=== PATIENT | male | born 1960 | race African-American/Black ===

== ENCOUNTER 2017-01-17 13:52 | Inpatient (IN) | payer BC ==
[2017-01-17 14:27] VITALS: BMI 22.8
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
[2017-01-17] MEDS ORDERED: IBUPROFEN 400 MG TABLET (FP) PO PRN (15:53)
[2017-01-17] MEDS ORDERED: MENTHOL/PHENOL 1 EACH UD MM PRN (15:53)
[2017-01-17] MEDS ORDERED: MAGNESIUM HYDROX 2400MG/30ML ORAL SUSPENSION 30 ML CUP PO PRN (15:53)
[2017-01-17] MEDS ORDERED: LOPERAMIDE HCL 2 MG CAPSULE PO PRN (15:53)
[2017-01-17] MEDS ORDERED: guaiFENesin/D-METHORPHAN HB 10 ML UNIT-DOSE CUPS PO PRN (15:53)
[2017-01-17] MEDS ORDERED: MAGNESIUM CITRATE 300 ML BOTTLE PO PRN (15:53)
[2017-01-17] MEDS ORDERED: diphenhydrAMINE HCL 50 MG CAPSULE PO PRN (15:53)
[2017-01-17] MEDS ORDERED: chlordiazePOXIDE HCL 25 MG CAPSULE PO PRN (15:53)
[2017-01-17] MEDS ORDERED: ACETAMINOPHEN 325 MG TABLET (FP) PO PRN (15:53)
[2017-01-17] MEDS ORDERED: hydrOXYzine PAMOATE 50 MG CAPSULE (FP) PO PRN (15:53)
[2017-01-17] MEDS ORDERED: P-EPHED 60MG/TRIPROLIDI 2.5MG TABLET PO PRN (15:53)
[2017-01-17] MEDS ORDERED: MAG HYDROX/AL HYDROX/SIMETH 30 ML UNIT-DOSE CUP PO PRN (15:53)
[2017-01-17] MEDS: NICOTINE 14 MG/24 HOURS TOPICAL PATCH TD SCH (19:45)
[2017-01-17] MEDS: chlordiazePOXIDE HCL 25 MG CAPSULE PO SCH ×2 (19:45→22:28)
[2017-01-17] MEDS: NICOTINE POLACRILEX 2 MG GUM BC PRN (20:23)
[2017-01-17] MEDS: THIAMINE HCL 100 MG TABLET (FP) PO SCH (22:29)
[2017-01-17 23:01] LABS: URINE APPEARANCE SLCLOUDY; URINE BILIRUBIN NEGATIVE (NEGATIVE); URINE BLOOD NEGATIVE (NEGATIVE); URINE COLOR YELLOW; URINE GLUCOSE (UA) NEGATIVE (NEGATIVE); URINE KETONE NEGATIVE (NEGATIVE); URINE NITRITE NEGATIVE (NEGATIVE); URINE PROTEIN NEGATIVE (NEGATIVE); URINE UROBILINOGEN NEGATIVE mg/dL (0.2-1.0)
[2017-01-18] MEDS: chlordiazePOXIDE HCL 25 MG CAPSULE PO SCH ×4 (05:43→22:16)
[2017-01-18 09:55] LABS: MCH 26.9 pg (25.7-33.7); MCHC 32.5 g/dl (32.0-35.9); MEAN CELL VOLUME 82.7 fl (80-96); MEAN PLT VOLUME 8.1 fl (7.5-11.1); PLATELET COUNT 148 K/MM3 (134-434); RDW 13.5 % (11.9-15.9); WHITE BLOOD COUNT 3.1 K/mm3 (4.0-10.0)
[2017-01-18 09:58] LABS: ALBUMIN 3.3 g/dl (3.4-5.0); ALK PHOS 66 U/L (45-117); ANION GAP 9 (8-16); BILIRUBIN,TOTAL 0.4 mg/dL (0.2-1.0); CALCIUM 8.8 mg/dL (8.5-10.1); CO2 27 mmol/L (21-32); CREATININE 0.9 mg/dL (0.7-1.3); GLUCOSE,RANDOM 85 mg/dL (74-106); SGOT/AST 13 U/L (15-37); SGPT/ALT 24 U/L (12-78); TOT PROT 6.2 g/dl (6.4-8.2)
[2017-01-18] MEDS: NICOTINE POLACRILEX 2 MG GUM BC PRN (10:30)
--- NOTE | 2017-01-18 11:01 | EKG ---
Test Reason : Blood Pressure : / mmHG Vent. Rate : 074 BPM Atrial Rate : 074 BPM P-R Int : 122 ms QRS Dur : 086 ms QT Int : 356 ms P-R-T Axes : 058 046 041 degrees QTc Int : 395 ms NORMAL SINUS RHYTHM POOR R WAVE PROGRESSION ABNORMAL ECG NO PREVIOUS ECGS AVAILABLE BASELINE ARTIFACT Confirmed by JEFF GAUTHIER, ROSSANA ([id number]) on 01/18/2017 11:01:34 AM Referred By: Confirmed By:ROSSANA AGUILAR MD
[2017-01-18] MEDS: PRENATAL VITAMINS W/ FOLIC ACID TABLET (FP) PO SCH (11:24)
[2017-01-18] MEDS: NICOTINE 14 MG/24 HOURS TOPICAL PATCH TD SCH (11:24)
--- NOTE | 2017-01-18 12:20 | CONSULT ---
[facility] Psychiatric Consult - Data Date of interview: 01/18/17 Admission source: [facility] Identifying data: Mr Fisher is a 56 years old single Black male, father of 3 daughters, unemployed with no source of income, homeless Substance Abuse History: Reports history of alcohol, cocaine, marijuana and pcp use. Refer to addiction counselor's note for further information Medical History: Significant for Psychiatric History: Denies history of previous psychiatric treatment Physical/Sexual Abuse/Trauma History: Denies history of verbal, physical or sexual abuse as well as DV relationship Additional Comment: Reports history of multiple arrests including 3 felony convictions Mental Status Exam - Mental Status Exam Alert and Oriented to: Time, Place, Person Cognitive Function: Fair Patient Appearance: Well Groomed Mood: Irritable (very) Affect: Appropriate Patient Behavior: Cooperative (superficially but hostile) Speech Pattern: Clear Voice Loudness: Normal Thought Process: Intact, Goal Oriented Hallucinations: Denies Suicidal Ideation: Denies Homicidal Ideation: Denies Insight/Judgement: Poor Sleep: Well Appetite: Good Muscle strength/Tone: Normal Gait/Station: Normal Psychiatric Findings - Problem List ([place] 1, 2,3) (1) Substance induced mood disorder Current Visit: Yes Status: Acute (2) Alcohol dependence with uncomplicated withdrawal Current Visit: Yes Status: Acute (3) Cocaine dependence, uncomplicated Current Visit: Yes Status: Acute (4) Cannabis dependence, uncomplicated Current Visit: Yes Status: Acute (5) Phencyclidine dependence Current Visit: Yes Status: Acute (6) Nicotine dependence Current Visit: Yes Status: Acute (7) Fracture of finger of left hand Current Visit: Yes Status: Acute Qualifiers: Encounter type: initial encounter Finger: middle finger Fracture type: closed Comment: and Ring finger left hand (8) Hyperlipidemia Current Visit: Yes Status: Acute - Initial Treatment Plan Initial Treatment Plan: Continue inpatient detoxification
[2017-01-18 14:21] LABS: URINE LEUK ESTERASE Negative (NEGATIVE)
--- NOTE | 2017-01-18 15:01 | PN ---
[facility] CIWA - CIWA Score Nausea/Vomitin-No Nausea/No Vomiting Muscle Tremors: 3 Anxiety: 2 Agitation: 2 Paroxysmal Sweats: 3 Orientation: 0-Oriented Tacttile Disturbances: 0-None Auditory Disturbances: 0-None Visual Disturbances: 0-None Headache: 0-None Present CIWA-Ar Total Score: 10 S Progress Note (SOAP) Subjective: Anxiety,tremors,sweating,interrupted sleep,restless. Objective: 01/18/17 14:59 Vital Signs - 8 hr 01/18/17 01/18/17 10:00 14:52 Temperature 96.5 F L 98.2 F Pulse Rate 81 85 Respiratory 16 16 Rate Blood Pressure 102/75 125/76 Laboratory Last Values WBC 3.1 K/mm3 (4.0-10.0) L 01/18/17 07:30 RBC 5.02 M/mm3 (4.00-5.60) 01/18/17 07:30 Hgb 13.5 GM/dL (11.7-16.9) 01/18/17 07:30 Hct 41.5 % (35.4-49) 01/18/17 07:30 MCV 82.7 fl (80-96) 01/18/17 07:30 MCH 26.9 pg (25.7-33.7) 01/18/17 07:30 MCHC 32.5 g/dl (32.0-35.9) 01/18/17 07:30 RDW 13.5 % (11.9-15.9) 01/18/17 07:30 Plt Count 148 K/MM3 (134-434) 01/18/17 07:30 MPV 8.1 fl (7.5-11.1) 01/18/17 07:30 Sodium 142 mmol/L (136-145) 01/18/17 07:30 Potassium 4.1 mmol/L (3.5-5.1) 01/18/17 07:30 Chloride 106 mmol/L (98-107) 01/18/17 07:30 Carbon Dioxide 27 mmol/L (21-32) 01/18/17 07:30 Anion Gap 9 (8-16) 01/18/17 07:30 BUN 13 mg/dL (7-18) 01/18/17 07:30 Creatinine 0.9 mg/dL (0.7-1.3) 01/18/17 07:30 Creat Clearance w eGFR > 60 (>60) 01/18/17 07:30 Random Glucose 85 mg/dL (74-106) 01/18/17 07:30 Calcium 8.8 mg/dL (8.5-10.1) 01/18/17 07:30 Total Bilirubin 0.4 mg/dL (0.2-1.0) 01/18/17 07:30 AST 13 U/L (15-37) L 01/18/17 07:30 ALT 24 U/L (12-78) 01/18/17 07:30 Alkaline Phosphatase 66 U/L (45-117) 01/18/17 07:30 Total Protein 6.2 g/dl (6.4-8.2) L 01/18/17 07:30 Albumin 3.3 g/dl (3.4-5.0) L 01/18/17 07:30 Urine Color Yellow 01/17/17 22:45 Urine Appearance Slcloudy 01/17/17 22:45 Urine pH 6.0 (5.0-8.0) 01/17/17 22:45 Ur Specific [place] 1.020 (1.005-1.025) 01/17/17 22:45 Urine Protein Negative (NEGATIVE) 01/17/17 22:45 Urine Glucose (UA) Negative (NEGATIVE) 01/17/17 22:45 Urine Ketones Negative (NEGATIVE) 01/17/17 22:45 Urine Blood Negative (NEGATIVE) 01/17/17 22:45 Urine Nitrite Negative (NEGATIVE) 01/17/17 22:45 Urine Bilirubin Negative (NEGATIVE) 01/17/17 22:45 Urine Urobilinogen Negative mg/dL (0.2-1.0) 01/17/17 22:45 Ur Leukocyte Esterase Negative (NEGATIVE) 01/17/17 22:45 RPR Titer Nonreactive (NONREACTIVE) 01/18/17 07:30 labs noted Assessment: 01/18/17 14:59 Withdrawal sx. Plan: Continue detox
[2017-01-18] MEDS: THIAMINE HCL 100 MG TABLET (FP) PO SCH (22:16)
[2017-01-19] MEDS: chlordiazePOXIDE HCL 25 MG CAPSULE PO SCH ×2 (06:30→15:30)
[2017-01-19] MEDS: NICOTINE POLACRILEX 2 MG GUM BC PRN ×3 (09:08→18:15)
--- NOTE | 2017-01-19 09:49 | PN ---
[facility] CIWA - CIWA Score Nausea/Vomitin-No Nausea/No Vomiting Muscle Tremors: 3 Anxiety: 3 Agitation: 3 Paroxysmal Sweats: 2 Orientation: 0-Oriented Tacttile Disturbances: 0-None Auditory Disturbances: 0-None Visual Disturbances: 0-None Headache: 0-None Present CIWA-Ar Total Score: 11 [facility] Progress Note (SOAP) Subjective: irritable tired sweats agitation Objective: 01/19/17 10:16 Vital Signs Temperature 97.6 F 01/19/17 10:14 Pulse Rate 85 01/19/17 10:14 Respiratory Rate 18 01/19/17 10:14 Blood Pressure 106/78 01/19/17 10:14 O2 Sat by Pulse Oximetry (%) Laboratory Tests 01/17/17 01/18/17 01/18/17 22:45 07:30 07:30 WBC 3.1 L RBC 5.02 Hgb 13.5 Hct 41.5 MCV 82.7 MCH 26.9 MCHC 32.5 RDW 13.5 Plt Count 148 MPV 8.1 Sodium 142 Potassium 4.1 Chloride 106 Carbon Dioxide 27 Anion Gap 9 BUN 13 Creatinine 0.9 Creat Clearance w eGFR > 60 Random Glucose 85 Calcium 8.8 Total Bilirubin 0.4 AST 13 L ALT 24 Alkaline Phosphatase 66 Total Protein 6.2 L Albumin 3.3 L Urine Color Yellow Urine Appearance Slcloudy Urine pH 6.0 Ur Specific [place] 1.020 Urine Protein Negative Urine Glucose (UA) Negative Urine Ketones Negative Urine Blood Negative Urine Nitrite Negative Urine Bilirubin Negative Urine Urobilinogen Negative Ur Leukocyte Esterase Negative RPR Titer 01/18/17 07:30 WBC RBC Hgb Hct MCV MCH MCHC RDW Plt Count MPV Sodium Potassium Chloride Carbon Dioxide Anion Gap BUN Creatinine Creat Clearance w eGFR Random Glucose Calcium Total Bilirubin AST ALT Alkaline Phosphatase Total Protein Albumin Urine Color Urine Appearance Urine pH Ur Specific [place] Urine Protein Urine Glucose (UA) Urine Ketones Urine Blood Urine Nitrite Urine Bilirubin Urine Urobilinogen Ur Leukocyte Esterase RPR Titer Nonreactive aaox3 ambulating no acute distress Assessment: 01/19/17 10:16 withdrawal sx Plan: continue detox increase fluids
[2017-01-19] MEDS: NICOTINE 14 MG/24 HOURS TOPICAL PATCH TD SCH (15:29)
[2017-01-19] MEDS: PRENATAL VITAMINS W/ FOLIC ACID TABLET (FP) PO SCH (15:30)
[2017-01-19] MEDS: chlordiazePOXIDE 5 MG CAPSULE PO SCH ×2 (18:11→22:18)
[2017-01-19] MEDS: THIAMINE HCL 100 MG TABLET (FP) PO SCH (22:20)
[2017-01-20] MEDS: chlordiazePOXIDE 5 MG CAPSULE PO SCH ×2 (07:35→10:32)
--- NOTE | 2017-01-20 10:07 | PN ---
[facility] Progress Note (SOAP) Subjective: sweats irritable Objective: 01/20/17 10:06 Vital Signs Temperature 98.2 F 01/20/17 06:34 Pulse Rate 80 01/20/17 06:34 Respiratory Rate 18 01/20/17 06:34 Blood Pressure 104/65 01/20/17 06:34 O2 Sat by Pulse Oximetry (%) aaox3 ambulating no acute distress Assessment: 01/20/17 10:06 mild withdrawal sx Plan: continue detox d/c in am
[2017-01-20] MEDS: NICOTINE 14 MG/24 HOURS TOPICAL PATCH TD SCH (10:33)
[2017-01-20] MEDS: PRENATAL VITAMINS W/ FOLIC ACID TABLET (FP) PO SCH (10:33)
[2017-01-20 14:28] VITALS: BP 105/69; PULSE 94; TEMP 97.2
[2017-01-20] MEDS ORDERED: chlordiazePOXIDE HCL 10 MG CAPSULE PO SCH (17:00)
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
== END 2017-01-20 15:03 | disposition home or self-care (01) | DRG 774 ==
LOC: YASAS 13:52 → Y6N 15:43
PROVIDERS: ADMIT Internal Medicine; ATTEND Internal Medicine
PROC: HZ2ZZZZ Detoxification Services for Substance Abuse Treatment (ICD-10-PCS; principal; 2017-01-17)
PROC: 2W3KX1Z Immobilization of Left Finger using Splint (ICD-10-PCS; 2017-01-17)
DX: F10.230 Alcohol dependence with withdrawal, uncomplicated (principal); F14.20 Cocaine dependence, uncomplicated; F12.20 Cannabis dependence, uncomplicated; F16.20 Hallucinogen dependence, uncomplicated; F17.210 Nicotine dependence, cigarettes, uncomplicated; F91.8 Other conduct disorders; Z91.19 Patient's noncompliance with other medical treatment and regimen; E78.5 Hyperlipidemia, unspecified; Z87.438 Personal history of other diseases of male genital organs; S62.603D Fracture of unspecified phalanx of left middle finger, subsequent encounter for fracture with routine healing; S62.605D Fracture of unspecified phalanx of left ring finger, subsequent encounter for fracture with routine healing; X58.XXXD Exposure to other specified factors, subsequent encounter
CPT/HCPCS: 36415; 80053; 81003; 85027; 86593; 93005; 93010